=== PATIENT | female | born 1930 ===

== ENCOUNTER 2018-04-17 15:35 | Observation (INO) | payer MEDICAID, MEDICARE ==
--- NOTE | 2018-04-17 16:27 | ED PDOC ---
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 Denies numbness, weakness, visual changes, LOC. NIHSS Stroke Scale - Date/Time Evaluation Performed Date Performed: 04/17/18 When Was NIHSS Performed: Baseline - How Severe is the Stroke Level of Consciousness: 0=Alert LOC to Questions: 0=Both comments correct LOC to commands: 0=Obeys both correctly Best Gaze: 0=Normal Visual: 0=No visual loss Facial: 0=Normal Motor Arm - Left: 0=No drift Motor Arm - Right: 0=No drift Motor Leg - Left: 0=No drift Motor Leg - Right: 0=No drift Limb Ataxia: 0=Absent Sensory: 0=Normal Best Language: 0=No aphasia Dysarthia: 0=Normal articulation Extinction & Inattention (Neglect): 0=Normal, no object Score: 0 Past Medical History Reviewed: Nursing Documentation, Vital Signs Vital Signs: Last Vital Signs Temp 98.6 F 04/17/18 15:42 Pulse 88 04/17/18 15:42 Resp 16 04/17/18 15:42 BP 113/75 04/17/18 15:42 Pulse Ox 99 04/17/18 15:42 - Medical History PMH: CVA, HTN, Hypercholesterolemia, Hyperlipidemia, Malignancy - Family History Family History: States: Unknown Family Hx - Social History Current smoker - smoking cessation education provided: No Alcohol: None - Immunization History Hx Tetanus Toxoid Vaccination: No Hx Influenza Vaccination: No Hx Pneumococcal Vaccination: No - Home Medications Home Medications: Ambulatory Orders Medication Instructions Recorded Amlodipine Bes/Olmesartan Med 1 each PO DAILY 01/14/18 [Amlodipine-Olmesartan 5-20 mg] Atorvastatin [Lipitor] 20 mg PO DAILY 01/14/18 Brimonidine Tartrate/Timolol 5 ml OU BID 01/14/18 [Combigan 0.2%-0.5% Eye Drops] Albuterol Sulfate [Ventolin Hfa] 1 puff IH QID PRN #1 inh 01/18/18 Aspirin [Aspirin Chewable] 81 mg PO DAILY #30 chew 01/18/18 Meclizine [Antivert] 12.5 mg PO DAILY 04/17/18 Ranitidine HCl [Ranitidine HCl] 300 mg PO DAILY 04/17/18 - Allergies Allergies/Adverse Reactions: Allergies Allergy/AdvReac Type Severity Reaction Status Date / Time No Known Allergies Allergy Verified 01/14/18 15:21 Review of Systems Constitutional: Negative for: Fever, Chills Eyes: Negative for: Vision Change ENT: Positive for: Ear Pain Cardiovascular: Negative for: Chest Pain, Palpitations Respiratory: Negative for: Cough, Shortness of Breath Gastrointestinal: Positive for: Nausea. Negative for: Vomiting, Abdominal Pain , Diarrhea Genitourinary Female: Negative for: Dysuria, Hematuria Musculoskeletal: Negative for: Neck Pain, Back Pain Skin: Negative for: Rash, Lesions Neurological: Positive for: Headache, Dizziness. Negative for: Weakness, Numbness, Incoordination, Change in Speech, Confusion, Seizures, Altered Mental Status Physical Exam - Reviewed Nursing Documentation Reviewed: Yes Vital Signs Reviewed: Yes - Physical Exam Appears: Positive for: Well, No Acute Distress Head Exam: Positive for: ATRAUMATIC, NORMAL INSPECTION Skin: Positive for: Normal Color, Warm, Dry Eye Exam: Positive for: Normal appearance, EOMI, PERRL ENT: Positive for: TM Is/Are (WNL) Neck: Positive for: Normal, Painless ROM, Supple Cardiovascular/Chest: Positive for: Regular Rate, Rhythm Respiratory: Positive for: Normal Breath Sounds Gastrointestinal/Abdominal: Positive for: Normal Exam Extremity: Positive for: Other (Decreased ROM L knee (old)). 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 Negative for: Motor/Sensory Deficits, Aphasia, Facial Droop - Laboratory Results Result Diagrams: 04/17/18 16:30 04/17/18 16:30 - ECG O2 Sat by Pulse Oximetry: 99 - Progress Condition: Improving,but remains with symptoms Medical Decision Making Medical Decision Makin yo female with MCALLISTER and vertigo. - labs - EKG - CXR - CT head - Meclizine - orthostatics Time: 1653 CXR RESULTS FINDINGS: LUNGS: No active pulmonary disease. PLEURA: No significant pleural effusion identified, no pneumothorax apparent. CARDIOVASCULAR: Mild cardiomegaly. Tortuous thoracic aorta. OSSEOUS STRUCTURES: No significant abnormalities. VISUALIZED UPPER ABDOMEN: Normal. OTHER FINDINGS: None. IMPRESSION: Mild cardiomegaly. Tortuous thoracic aorta. No pulmonary pathology appreciated Time: 1742 CT HEAD RESULTS FINDINGS: HEMORRHAGE: No acute parenchymal, subarachnoid nor extra-axial hemorrhage. BRAIN: Chronic left posterior temporoparietal cortical/ subcortical infarct. In addition, mild diffuse/confluent chronic periventricular white matter ischemic changes are also felt be present. There also mild deep and subcortical white matter ischemic changes as well. Note that the possibility of a small hyperacute infarct cannot be excluded on this exam. Clinic correlation recommended. Empty sella. Moderate generalized volume loss. Vascular calcifications both carotid siphons VENTRICLES: No obstructive hydrocephalus. CALVARIUM: None no acute calvarial fractures. . Mild hyperostosis frontalis interna. . PARANASAL SINUSES: Unremarkable as visualized. No significant inflammatory changes. MASTOID AIR CELLS: Unremarkable as visualized. No inflammatory changes. OTHER FINDINGS: Changes of bilateral cataract surgery present. . IMPRESSION: No acute intracranial hemorrhage. Chronic left posterior temporoparietal watershed zone infarct. Mild chronic white-matter ischemic changes Moderate generalized volume loss. 19:00 Pt feels better, ambulated to bathroom without difficulty. Disposition - Clinical Impression Clinical Impression: Vertigo, Headache - Patient ED Disposition Is Patient to be Admitted: Yes - Disposition Disposition Time: 19:27 Condition: STABLE - Pt Status Changed To: Hospital Disposition Of: Observation - POA Present On Arrival: None
[2018-04-17 16:41] LABS: BASO % 0.4 % (0.0-2.0); EOS # 0.3 K/uL (0.0-0.7); EOS % 4.7 % (0.0-4.0); HEMOGLOBIN 10.4 g/dL (12.0-16.0); LYMPH # 1.7 K/uL (1.0-4.3); LYMPH % 26.6 % (20.0-40.0); MEAN CELL VOLUME 89.7 fl (81.0-99.0); MEAN CORPUSCULAR HEMOGLOBIN 29.5 pg (27.0-31.0); MEAN CORPUSCULAR HGB CONC 32.8 g/dL (33.0-37.0); MEAN PLATELET VOLUME 10.4 fl (7.2-11.7); MONO # 0.5 K/uL (0.0-0.8); MONO % 8.4 % (0.0-10.0); NEUT # 3.9 K/uL (1.8-7.0); NEUT % 59.9 % (50.0-75.0); NRBC % 0.1 % (0.0-0.0); RBC 3.53 Mil/uL (3.80-5.20); RED CELL DISTRIBUTION WIDTH 16.1 % (11.5-14.5); WHITE BLOOD COUNT 6.5 K/uL (4.8-10.8)
[2018-04-17 16:55] LABS: ALB/GLOB RATIO 1.2 (1.0-2.1); ALBUMIN 3.4 g/dL (3.5-5.0); ALT/SGPT 24 U/L (9-52); AST/SGOT 31 U/L (14-36); BLOOD UREA NITROGEN 31 mg/dl (7-17); CALCIUM 8.9 mg/dL (8.4-10.2); GFR AFRICAN-AMERICAN 34; GFR NON-AFRICAN AMERICAN 28
--- NOTE | 2018-04-17 17:01 | RAD ---
Date of service: 04/17/2018 HISTORY: Dizziness COMPARISON: No prior. FINDINGS: LUNGS: No active pulmonary disease. PLEURA: No significant pleural effusion identified, no pneumothorax apparent. CARDIOVASCULAR: Mild cardiomegaly. Tortuous thoracic aorta. OSSEOUS STRUCTURES: No significant abnormalities. VISUALIZED UPPER ABDOMEN: Normal. OTHER FINDINGS: None. IMPRESSION: Mild cardiomegaly. Tortuous thoracic aorta. No pulmonary pathology appreciated
[2018-04-17 17:12] LABS: PARTIAL THROMBOPLASTIN TIME 32.6 Seconds (25.6-37.1)
[2018-04-17 17:34] LABS: SQUAMOUS EPITHIAL 1 /hpf (0-5); URINE BILIRUBIN NEGATIVE (NEGATIVE); URINE BLOOD NEGATIVE (NEGATIVE); URINE CLARITY CLEAR (Clear); URINE COLOR YELLOW (YELLOW); URINE GLUCOSE (UA) NEG (Normal); URINE HYALINE CAST 0-2 /hpf (0-2); URINE LEUKOCYTE ESTERASE TRACE Leu/uL (Negative); URINE PROTEIN NEGATIVE (NEGATIVE); URINE UROBILINOGEN 0.2-1.0 mg/dL (0.2-1.0)
--- NOTE | 2018-04-17 17:45 | CT ---
Date of service: 04/17/2018 PROCEDURE: CT HEAD WITHOUT CONTRAST. HISTORY: Vertigo COMPARISON: None available. TECHNIQUE: Axial computed tomography images were obtained through the head/brain without intravenous contrast. Radiation dose: Total exam DLP = 771.54 mGy-cm. This CT exam was performed using one or more of the following dose reduction techniques: Automated exposure control, adjustment of the mA and/or kV according to patient size, and/or use of iterative reconstruction technique. FINDINGS: HEMORRHAGE: No acute parenchymal, subarachnoid nor extra-axial hemorrhage. BRAIN: Chronic left posterior temporoparietal cortical/ subcortical infarct. In addition, mild diffuse/confluent chronic periventricular white matter ischemic changes are also felt be present. There also mild deep and subcortical white matter ischemic changes as well. Note that the possibility of a small hyperacute infarct cannot be excluded on this exam. Clinic correlation recommended. Empty sella. Moderate generalized volume loss. Vascular calcifications both carotid siphons VENTRICLES: No obstructive hydrocephalus. CALVARIUM: None no acute calvarial fractures. . Mild hyperostosis frontalis interna. . PARANASAL SINUSES: Unremarkable as visualized. No significant inflammatory changes. MASTOID AIR CELLS: Unremarkable as visualized. No inflammatory changes. OTHER FINDINGS: Changes of bilateral cataract surgery present. . IMPRESSION: No acute intracranial hemorrhage. Chronic left posterior temporoparietal watershed zone infarct. Mild chronic white-matter ischemic changes Moderate generalized volume loss.
[2018-04-17 18:55] LABS: INR 1.1; PROTHROMBIN TIME 11.7 Seconds (9.8-13.1)
--- NOTE | 2018-04-18 07:41 | CARD ---
APPROVED REPORT Date of service: 04/17/2018 <Conclusion> Sinus bradycardia Otherwise normal ECG
[2018-04-18] MEDS: Brimonidine 0.2% 50 DROP/5 ML BOTTLE OU SCH ×2 (08:57→17:33)
--- NOTE | 2018-04-18 23:08 | CP.PCM.HP ---
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 At the ER she was noted to have elevated BP. She denies any chest pain or SOB, nausea or vomiting. Denies any extremity weakness. Present on Admission - Present on Admission Any Indicators Present on Admission: No History of DVT/PE: No History of Uncontrolled Diabetes: No Urinary Catheter: No Decubitus Ulcer Present: No Review of Systems - Neurological Neurological: Dizziness Past Patient History - Infectious Disease Hx of Infectious Diseases: None - Past Medical History & Family History Past Medical History?: Yes - Past Social History Alcohol: None - CARDIAC Hx Hypercholesterolemia: Yes Hx Hypertension: Yes - NEUROLOGICAL Hx Neurological Disorder: Yes - INTEGUMENTARY Hx Dermatological Problems: Yes - MUSCULOSKELETAL/RHEUMATOLOGICAL Hx Falls: No - GASTROINTESTINAL Hx Gastroesophageal Reflux: Yes - PSYCHIATRIC Hx Substance Use: No - SURGICAL HISTORY Hx Orthopedic Surgery: Yes (LT knee) - ANESTHESIA Hx Anesthesia: Yes Hx Anesthesia Reactions: No Meds Allergies/Adverse Reactions: Allergies Allergy/AdvReac Type Severity Reaction Status Date / Time No Known Allergies Allergy Verified 01/14/18 15:21 Physical Exam - Eye Exam Eye Exam: Normal appearance - Respiratory Exam Respiratory Exam: NORMAL BREATHING PATTERN - Cardiovascular Exam Cardiovascular Exam: REGULAR RHYTHM - GI/Abdominal Exam GI & Abdominal Exam: Normal Bowel Sounds - Neurological Exam Neurological exam: CN II-XII Intact, Oriented x3 Results - Vital Signs Recent Vital Signs: Last Vital Signs Temp 98.0 F 04/18/18 20:14 Pulse 67 04/18/18 21:00 Resp 17 04/18/18 20:14 BP 164/50 H 04/18/18 20:14 Pulse Ox 97 04/18/18 20:14 - Labs Result Diagrams: 04/17/18 16:30 04/17/18 16:30 Assessment & Plan (1) Headache Status: Acute (2) Vertigo Status: Acute (3) Hypertension Status: Acute - Assessment and Plan (Free Text) Plan: start BP meds chck labs Neuro eval MRI o fthe brain
[2018-04-19 06:02] LABS: CALCIUM 8.9 mg/dL (8.4-10.2)
[2018-04-19] MEDS: Brimonidine 0.2% 50 DROP/5 ML BOTTLE OU SCH ×2 (09:01→16:15)
[2018-04-19 12:36] VITALS: O2SAT 97
[2018-04-19 16:05] VITALS: BP 137/81; PULSE 68; RESP 18; TEMP 98
== END 2018-04-19 17:30 | disposition home or self-care (01) ==
LOC: H.ER 15:35 → H.ERHOLD 19:27 → H.TEL 21:46
PROVIDERS: ADMIT Family Medicine; ATTEND Family Medicine
DX: R51 Headache (principal); Z86.73 Personal history of transient ischemic attack (TIA), and cerebral infarction without residual deficits; I10 Essential (primary) hypertension; E78.00 Pure hypercholesterolemia, unspecified; E78.5 Hyperlipidemia, unspecified; R42 Dizziness and giddiness; K21.9 Gastro-esophageal reflux disease without esophagitis
CPT/HCPCS: 36415; 70450; 71045; 80048; 80053; 80061; 81003; 82948; 84484; 85025; 85610; 85730; 93005; 97162; 99285; G0378; G8978; G8979; J2270